=== PATIENT | male | born 1995 | race Caucasian/White ===

== ENCOUNTER 2016-06-01 02:15 | Emergency (ER) | payer OTHER, BC ==
[~2016-06-01] VITALS: Ht 177.8 cm; Wt 113.4 kg
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
[2016-06-01 03:28] VITALS: BP 138/78
== END 2016-06-01 03:28 | disposition home or self-care (01) ==
LOC: ER 02:17
DX: S39.92XA Unspecified injury of lower back, initial encounter (principal); S89.91XA Unspecified injury of right lower leg, initial encounter; V40.5XXA Car driver injured in collision with pedestrian or animal in traffic accident, initial encounter; Y92.410 Unspecified street and highway as the place of occurrence of the external cause; Y99.8 Other external cause status
CPT/HCPCS: 99283